=== PATIENT | female | born 1940 | race Caucasian/White ===

== ENCOUNTER 2022-03-24 17:02 | Emergency (ER) | payer OTHER, MEDICARE ==
[2022-03-24] MEDS ORDERED: IBUPROFEN 400 MG TABLET (FP) PO ONE ×2 (17:10→17:32)
[2022-03-24] MEDS ORDERED: DIPHTH,PERTUSS(ACELL),TET 0.5 ML DISP.SYRIN IM ONE ×2 (17:11→17:32)
[2022-03-24 18:18] VITALS: BP 139/53; PULSE 60; RESP 18; TEMP 97.7; BMI 27.9
== END 2022-03-24 21:17 | disposition home or self-care (01) ==
LOC: FER 17:02
PROC: 0HQ1XZZ Repair Face Skin, External Approach (ICD-10-PCS; principal; 2022-03-24)
PROC: 3E0234Z Introduction of Serum, Toxoid and Vaccine into Muscle, Percutaneous Approach (ICD-10-PCS; 2022-03-24)
DX: S01.81XA Laceration without foreign body of other part of head, initial encounter (principal); W01.0XXA Fall on same level from slipping, tripping and stumbling without subsequent striking against object, initial encounter
CPT/HCPCS: 12011-25; 70450-TC; 70486-TC; 71045-TC-FY; 72125-TC; 73030-TC-LT-FY; 73562-TC-LT-FY; 73562-TC-RT-FY; 82962; 90471; 90715; 99285-25